=== PATIENT | female | born 1985 | race Caucasian/White ===

== ENCOUNTER → 2016-10-12 | Outpatient (CLI) | payer BC ==
[2015-05-14 15:45] VITALS: BP 126/65
[~2016-10-12] MED LIST: ACET325T9 PO
--- NOTE | 2016-10-12 10:37 | KCIC ---
Ultrasound left lower extremity Indication:Left lower extremity bruising and pain Technique: Multiple real-time grayscale images were obtained over the left lower extremity with use of color Doppler imaging. Static images were submitted for interpretation. Findings: There is no evidence for deep venous thrombosis. There is normal color fill-in on Doppler images. There is also normal response to compression and augmentation deep venous system. Spectral analysis is within normal limits. There is an area of hyperechogenicity in the subcutaneous tissue over the area of bruise which is consistent with the presence of ecchymosis. Impression: No evidence for deep venous thrombosis of the left lower extremity. There is an area of hyperechogenicity in the subcutaneous tissue over the area of bruise which is consistent with the presence of ecchymosis. Electronically signed by: Bhavik Knapp MD (10/12/2016 10:34 AM) [place] [id number]
== END | disposition home or self-care (01) ==
LOC: KCIC US 09:44
PROVIDERS: ATTEND Family Medicine
DX: S80.12XA Contusion of left lower leg, initial encounter (principal); R58 Hemorrhage, not elsewhere classified; X58.XXXA Exposure to other specified factors, initial encounter; Y93.89 Activity, other specified; Y92.89 Other specified places as the place of occurrence of the external cause; Y99.8 Other external cause status
CPT/HCPCS: 93971

== ENCOUNTER 2017-03-27 16:27 | Emergency (ER) | payer BC ==
[2017-03-27 17:20] LABS: ADD MAN DIFF? NO
[2017-03-27 17:28] LABS: BASO # 0.1 x10^3/uL (0.0-0.2); BASO % 1 % (0-3); EOS # 0.1 x10^3/uL (0.0-0.7); EOS % 1 % (0-3); HEMATOCRIT 40.3 % (36.0-47.0); HEMOGLOBIN 13.1 g/dL (12.0-15.5); LYMPH # 2.5 x10^3/uL (1.0-4.8); LYMPH % 30 % (24-48); MEAN CORPUSCULAR HEMOGLOBIN 27 pg (25-35); MEAN CORPUSCULAR HGB CONC 33 g/dL (31-37); MEAN CORPUSCULAR VOLUME 84 fL (79-100); MONO # 0.6 x10^3/uL (0.0-1.1); MONO % 7 % (0-9); NEUT # 5.2 x10^3uL (1.8-7.7); NEUT % 61 % (31-73); PLATELET COUNT 280 x10^3/uL (140-400); RED BLOOD COUNT 4.82 x10^6/uL (3.50-5.40); RED CELL DISTRIBUTION WIDTH 13.6 % (11.5-14.5); WHITE BLOOD COUNT 8.4 x10^3/uL (4.0-11.0)
[2017-03-27 17:36] LABS: ANION GAP 6 (6-14); BLOOD UREA NITROGEN 14 mg/dL (7-20); BUN/CREATININE RATIO 14 (6-20); CALCIUM 9.5 mg/dL (8.5-10.1); CARBON DIOXIDE 30 mmol/L (21-32); CHLORIDE 101 mmol/L (98-107); GFR 63.9; GLUCOSE 101 mg/dL (70-99); POTASSIUM 4.2 mmol/L (3.5-5.1); SODIUM 137 mmol/L (136-145)
[2017-03-27 17:42] LABS: ALBUMIN 3.8 g/dL (3.4-5.0); ALK PHOS 87 U/L (46-116); ALT (SGPT) 36 U/L (14-59); AST (SGOT) 19 U/L (15-37); TOTAL BILIRUBIN 0.2 mg/dL (0.2-1.0); TOTAL PROTEIN 7.7 g/dL (6.4-8.2)
[2017-03-27 17:46] LABS: TROPONINI < 0.017 ng/mL (0.000-0.055)
== END 2017-03-27 18:59 | disposition home or self-care (01) ==
LOC: ER 16:27
DX: K30 Functional dyspepsia (principal)
CPT/HCPCS: 36415; 71045; 80053; 84484; 85025; 93005; 99285-25

== ENCOUNTER 2017-03-31 20:25 | Emergency (ER) | payer SELFPAY, BC | END 2017-03-31 21:05 | disposition home or self-care (01) | LOC: ER 20:25 | DX: J06.9 Acute upper respiratory infection, unspecified (principal) | CPT/HCPCS: 99281 ==

== ENCOUNTER 2020-11-16 07:11 | Day surgery (SDC) | payer OTHER ==
[~2020-11-16] VITALS: Ht 171.4 cm; Wt 159.0 kg
[~2020-11-16 07:11] MED LIST changes: +DEXAMETHASONE SOD PHOS 4 MG/ML VIAL ONE; +HYDROmorphone 2 MG/ML VIAL IVP PRN; +IBUP-1060 PO; +IV RINGERS,LACTATED 1000ML 1,000 ML IV SCH; +ONDANSETRON PF 4 MG/2 ML VIAL. ONE; +PANT40TA77 PO; +PROCHLORPERAZINE 10 MG/2 ML VIAL. IVP PRN; +PROPOFOL 10 MG/ML (20ML) VIAL. IV ONE; +ceFAZolin SODIUM 3 GM in IV DEXTROSE 5% 100ML 100 ML IV PRN; +fentaNYL PF VIAL 100 MCG/2 ML VIAL IVP PRN
[2020-11-16] MEDS ORDERED: SCOPOLAMINE 1.5MG PATCH. TD ONE (07:30)
[2020-11-16] MEDS ORDERED: IOHEXOL 300 MG/ML 50 ML VIAL. ONE (07:30)
[2020-11-16] MEDS ORDERED: SURGICEL HEMOSTAT 4X8 EACH. ONE (07:30)
[2020-11-16] MEDS ORDERED: BUPIVACAINE MPF 0.5% 30 ML VIAL. ONE (07:30)
[2020-11-16 07:43] VITALS: BP 134/76
[2020-11-16] MEDS ORDERED: LIDOCAINE 1% PF 5 ML VIAL. ONE (08:11)
[2020-11-16] MEDS ORDERED: PROPOFOL 10 MG/ML (20ML) VIAL. IV ONE ×2 (08:11→08:35)
[2020-11-16] MEDS ORDERED: ROCURONIUM 50 MG/5 ML VIAL. ONE (08:12)
[2020-11-16] MEDS ORDERED: DEXAMETHASONE SOD PHOS 4 MG/ML VIAL ONE (08:12)
[2020-11-16] MEDS ORDERED: ONDANSETRON PF 4 MG/2 ML VIAL. ONE (08:12)
[2020-11-16] MEDS ORDERED: MIDAZOLAM HCL/PF 2 MG/2 ML VIAL. ONE (08:13)
[2020-11-16] MEDS ORDERED: fentaNYL PF VIAL 250 MCG/5 ML VIAL ONE (08:14)
[2020-11-16] MEDS ORDERED: KETAMINE HCL IN NACL, ISO-OSM 50 MG/5 ML SYRINGE ONE (08:53)
[2020-11-16] MEDS ORDERED: KETOROLAC 30 MG/ML VIAL. ONE (08:53)
[2020-11-16] MEDS ORDERED: SEVOFLURANE 61 TO 120 MINUTES. IH ONE (08:54)
[2020-11-16] MEDS ORDERED: SUGAMMADEX SODIUM 200 MG/2 ML VIAL. IVP ONE ×2 (09:00→09:30)
--- NOTE | 2020-11-16 09:31 | RAD ---
INDICATION: Reason: CHOLANGIOGRAMS IN OR WITH C-ARM, 3 IMAGES, .12 MIN FL TIME / Spl. Instructions: / History: . Fluoro for procedure. IMPRESSION: Fluoroscopy was utilized by the clinical service to assist with their procedure. There are 3 saved images/series. The limited saved images show opacification of the common bile duct with contrast flow into the duode num. 0.12 minutes of fluoroscopy time was used. This dictation is for the usage of fluoroscopy only. Please see the clinical service's procedure note for detail on the procedure. Electronically signed by: Cl Puri MD (11/16/2020 9:28 AM) [id number]
--- NOTE | 2020-11-16 09:53 | PDOC4 ---
Operative Note Operative Note Operative Note: Preoperative Diagnosis: Symptomatic cholelithiasis Postoperative Diagnosis: Same Procedure: Laparoscopic cholecystectomy with intraoperative cholangiogram Surgeons: Oscar Rodeo Performer: Vince STARKS Anesthesia: Gen. Estimated Blood Loss: 10 mL Specimen: Gallbladder to pathology Drains: None Complications: None Indications: The patient is a 35-year-old female who is referred with symptomatic cholelithiasis. Surgical treatment was offered by means of a laparoscopic cholecystectomy. The risks of surgery were discussed which include bleeding, infection, bile duct injury, bile leak, pain, the potential for additional surgeries or procedures. The patient understands and would like to proceed. Description: The patient was taken to the operating room and laid supine on the operating table. General anesthesia was performed. The abdomen was prepped with ChloraPrep and draped in a standard surgical fashion. A small supraumbilical incision was made with a scalpel. The Veress needle was then inserted and a pneumoperitoneum was then created. A 5 mm trocar was then inserted and the laparoscope was introduced. In the upper midabdomen a 5 mm trocar was inserted and in the right upper quadrant two 5 mm trocar were inserted. The gallbladder was retracted cephalad. The cystic duct was dissect ed free from surrounding tissues. One clip was placed on the duct near the gallbladder junction. An opening was made in the duct and a cholangiocatheter placed within and secured with a clip. Using contrast dye and fluoroscopy an intraoperative cholangiogram was performed that appeared unremarkable. The clip and catheter were then withdrawn. Three clips were placed on the cystic duct and it was divided. The cystic artery was then identified, dissected free, doubly clipped and divided as well. The gallbladder was then mobilized away from the liver with cautery. The umbilical 5 millimeter trocar was exchanged for an 11 millimeter trocar. The gallbladder was then placed in an endoscopic bag and extracted at the umbilical trocar site. The fascia there was closed with an 0 Vicryl suture and infiltrated with 0.5% marcaine. All blood and irrigation fluid was suctioned and hemostasis was good. The remaining ports were removed and the pneumoperitoneum was relieved. The skin incisions were closed using 4-0 Monocryl suture. Steri-Strips and dressings were then applied. The patient tolerated the procedure well and was sent to the recovery room in stable condition. At the end of the case all counts were correct. HILARY SÁNCHEZ MD Nov 16, 2020 09:53
[2020-11-16] MEDS ORDERED: OXYC-325 PO (09:56)
--- NOTE | 2020-11-16 09:58 | DISCH ---
DISCHARGE INSTRUCTIONS Condition on Discharge Condition on Discharge: Stable Activity After Discharge Activity Instructions for Disc: Other, see below (no lifting over 20 lbs, no driving while taking pain meds) Diet after Discharge Diet after Discharge: Regular Wound Incision Care Wound/Incision Care: Other, see below (may remove bandaids tomorrow and shower) Follow-Up Follow up with: Dr Sánchez in 2 weeks in office, call for appt [phone] HILARY SÁNCHEZ MD Nov 16, 2020 09:58
[2020-11-16] MEDS ORDERED: MORPHINE SULFATE 2 MG/ML INJ. ONE ×2 (10:25→10:47)
[2020-11-16] MEDS: MORPHINE SULFATE 2 MG/ML INJ. IVP PRN ×3 (10:29→10:51)
[2020-11-16 10:50] VITALS: BP 138/91
[2020-11-16] MEDS ORDERED: oxyCODONE/APAP 5/325 1 TAB TABLET PO ONE (11:00)
--- NOTE | 2020-11-17 15:10 | PATHOLOGY ---
[facility] Accession Number: [id number] . 01 Material submitted: . gallbladder - GALLBLADDER . 01 Clinical history: . CHOLELITHIASIS L/S CHOLECYSTECTOMY WITH GRAMS . 02 Diagnosis: Gallbladder, laparoscopic cholecystectomy: - Cholelithiasis. - Chronic cholecystitis. (JPM:marilee; 11/17/2020) S 11/17/2020 1149 Local . 02 Comment: There is no evidence of malignancy. (JPM:marilee; 11/17/2020) . 02 Electronically signed: . Maynor Lockwood MD, Pathologist NPI- [id number] . 01 Gross description: . Fixative: Formalin Labeled: Gallbladder Specimen received: A previously punctured gallbladder Dimensions: 7.5 x 3.8 x 0.5 cm Serosa: Box, focally hemorrhagic, and smooth Lymph node: Not identified Mucosa: Box, bile-stained, focally velvety and focally disrupted Average wall thickness: 0.2 cm Calculi: Multiple yellow, irregular, friable stones are identified ranging from 0.2-2.3 cm in greatest dimension. Abnormalities: None identified A1- Dextrine Mixer body, fundus, and the cystic duct margin. (MRF; 11/16/2020) MFE/MFE 11/17/2020 1148 Local . 02 Pathologist provided ICD-10: K80.10 . 02 CPT . 241347 Specimen Comment: A courtesy copy of this report has been sent to [phone], [phone] Specimen Comment: [id number] Specimen Comment: Report sent to / DR VIGIL Performed at: [address], [place], [place] [id number] MD Edy Cruz MD Phone: [phone] Performed at: [id number] [place], [place] [id number] MD Maynor Lockwood MD Phone: [phone]
== END 2020-11-16 11:22 | disposition home or self-care (01) ==
LOC: SURG 07:11
PROVIDERS: ATTEND Surgery
DX: K80.10 Calculus of gallbladder with chronic cholecystitis without obstruction (principal); E66.9 Obesity, unspecified; Z79.899 Other long term (current) drug therapy; Z98.890 Other specified postprocedural states
CPT/HCPCS: 47563; 74300; 81025; 88304; A4213; A4314; A4930; C1887; J1100; J1885; J2250; J2270; J2405; J2704; J3010; J3490; Q9967; A4657